=== PATIENT | female | born 1970 | race Caucasian/White ===

== ENCOUNTER → 2024-06-06 15:03 | Outpatient (REF) | payer BC, SELFPAY | LOC: HWWDC 15:03 | PROVIDERS: ATTENDING PHYSICIAN Physician Assistant Surgical; FAMILY PHYSICIAN Family Medicine | DX: Z12.31 Encounter for screening mammogram for malignant neoplasm of breast (principal) | CPT/HCPCS: 77063; 77067 ==

== ENCOUNTER 2025-01-20 06:26 | Day surgery (SDC) | payer BC, SELFPAY | END 2025-01-20 14:38 | disposition home or self-care (01) | LOC: GI 06:26 | PROVIDERS: ATTENDING PHYSICIAN Internal Medicine Gastroenterology | DX: Z12.11 Encounter for screening for malignant neoplasm of colon (principal); K63.5 Polyp of colon; K56.2 Volvulus; Q43.8 Other specified congenital malformations of intestine; K62.89 Other specified diseases of anus and rectum; Z83.710 Family history of adenomatous and serrated polyps | CPT/HCPCS: 45380; 88305 ==